=== PATIENT | male | born 1965 | race Two or more races ===

== ENCOUNTER 2021-05-21 14:44 | Emergency (ER) | payer SELFPAY ==
[~2021-05-21] VITALS: Ht 172.7 cm; Wt 79.4 kg
[2021-05-21] MEDS ORDERED: TAMS-3 PO (14:48)
--- NOTE | 2021-05-21 14:55 | NUR ---
Dr Mcbride at the bedside for MSE.
[2021-05-21] MEDS ORDERED: IV NORMAL SALINE 1000 ML BAG IV ONE (15:00)
[2021-05-21] MEDS ORDERED: KETOROLAC TROMETHAMINE 15 MG INJ IVP ONE (15:00)
[2021-05-21] MEDS ORDERED: MORPHINE SULFATE 4 MG/1 ML DISP.SYRIN IV ONE (15:00)
[2021-05-21 15:01] LABS: HEMATOCRIT 41.6 % (36.7-47.1); MEAN CORPUSCULAR HEMOGLOBIN 30.7 uug (23.8-33.4); MEAN CORPUSCULAR VOLUME 88.9 fL (73.0-96.2); PLATELET COUNT (AUTO) 148 K/uL (152-348)
[2021-05-21 15:06] LABS: *BILIRUBIN,URIN NEGATIVE (NEGATIVE); *BLOOD, URINE NEGATIVE (NEGATIVE); *CLARITY,URINE CLEAR (CLEAR); *COLOR,URINE YELLOW (YELLOW); *KETONES,URINE NEGATIVE (NEGATIVE); *UROBILINOGEN,URINE 0.2 E.U./dl (NORMAL); LEUKOCYTE ESTERASE ,URINE NEGATIVE (NEGATIVE); NITRITE, URINE NEGATIVE (NEGATIVE); PH,URINE 5.5 (5.0-8.0); UGLUCOSE NEGATIVE (NEGATIVE)
[2021-05-21] MEDS ORDERED: MORPHINE SULFATE 4 MG/1 ML DISP.SYRIN ONE (15:09)
--- NOTE | 2021-05-21 15:11 | NUR ---
Pt signed consent for IV contrasted Ct, placed in the chart.
[2021-05-21 15:19] LABS: CREATININE 1.1 mg/dL (0.6-1.3); POTASSIUM 4.4 mmol/L (3.5-5.1)
[2021-05-21 15:25] LABS: BILIRUBIN,TOTAL 0.5 mg/dL (0.2-1.0); TOTAL PROTEIN, SERUM 7.6 g/dL (6.4-8.2)
--- NOTE | 2021-05-21 15:34 | NUR ---
Pt out of Er for CT scan.
[2021-05-21] MEDS ORDERED: IOHEXOL 300MG/ML 100 ML INFUS..BTL ONE (15:52)
[2021-05-21] MEDS ORDERED: SWABABLE VALVE TRANSFER SET EA MC ONE (15:52)
[2021-05-21] MEDS ORDERED: IV NORMAL SALINE 250 ML IV ONE (15:52)
[2021-05-21] MEDS ORDERED: AMOX-430 PO (16:23)
--- NOTE | 2021-05-21 16:37 | NUR ---
IV removed. Catheter intact and site benign. Pressure and 4x4 gauze applied to site. No bleeding noted.
[2021-05-21 16:39] VITALS: BP 110/66
--- NOTE | 2021-05-21 16:40 | NUR ---
Patient discharged to home in stable condition. Written and verbal after care instructions given. Patient verbalizes understanding of instructions. Stressed follow up or return to ER for worsening s/s.
== END 2021-05-21 16:40 | disposition home or self-care (01) ==
LOC: ER 14:44
DX: K57.32 Diverticulitis of large intestine without perforation or abscess without bleeding (principal); Z79.899 Other long term (current) drug therapy
CPT/HCPCS: 36415; 74177; 80053; 81003; 83690; 85025; 96361; 96374; 99285; J2270; Q9967; A4663; J7030; J7050